=== PATIENT | female | born 1985 | race Hispanic/Latino ===

== ENCOUNTER 2024-11-28 17:56 | Inpatient (IN) | payer OTHER ==
[~2024-11-28] VITALS: Ht 152.4 cm; Wt 120.2 kg
[2024-11-28 18:00] VITALS: PULSE 108; RESP 20; TEMP 97.3
[2024-11-28] MEDS ORDERED: FUROSEMIDE40 MG PO (18:18)
[2024-11-28] MEDS ORDERED: LANTUS 3ML100 UNITS/ (18:18)
[2024-11-28] MEDS ORDERED: JARDIANCE25 MG (18:18)
[2024-11-28] MEDS ORDERED: SPIRONOLACTONE25 MG PO (18:18)
[2024-11-28] MEDS: ONDANSETRON HCL INJ 2MG/ML 2ML 2 MG/ML VIAL IV STA (19:00)
[2024-11-28] MEDS: Morphine 2mg Syringe 2 MG/ML SYR IV ONE (19:00)
[2024-11-28] MEDS: SODIUM CHLORIDE 0.9% 1000ML 1,000 ML IV SCH ×2 (19:00→21:30)
[2024-11-28] MEDS: FAMOTIDINE 20 MG/2 ML VIAL IV STA (19:01)
[2024-11-28 22:58] VITALS: BP 132/80; PULSE 64; RESP 18; TEMP 98.4; O2SAT 100
[2024-11-29] VITALS (10 sets, daily range): BP systolic 113–132; BP diastolic 63–80; PULSE 64–101; RESP 17–18; TEMP 97.7–99.4; O2SAT 92–100
[2024-11-29] MEDS: Morphine 2mg Syringe 2 MG/ML SYR IV PRN (03:13)
[2024-11-29] MEDS: ONDANSETRON HCL INJ 2MG/ML 2ML 2 MG/ML VIAL IV PRN (03:13)
[2024-11-29] MEDS ORDERED: LANTUS 3ML100 UNITS/ SQ (03:57)
[2024-11-29] MEDS ORDERED: SPIRONOLACTONE25 MG PO (03:57)
[2024-11-29 06:23] LABS: TROPONIN I 0.043 ng/mL (0-0.300)
[2024-11-29 08:12] LABS: BASOPHILS % 0.2 % (0.0-1.0); EOSINOPHILS % 0.2 % (0.0-6.0); HEMATOCRIT 41.8 % (34.2-44.1); HEMOGLOBIN 13.4 g/dL (12.0-16.0); LYMPHOCYTES # (AUTO) 0.5 (1.0-3.2); LYMPHOCYTES % 5.6 % (18.0-39.1); MEAN CORPUSCULAR HEMOGLOBIN 27.4 pg (28-32); MEAN CORPUSCULAR HGB CONC 32.1 g/dL (31-35); MEAN CORPUSCULAR VOLUME 85.5 fL (81-99); MONOCYTES # (AUTO) 0.6 (0.2-0.8); MONOCYTES % 7.1 % (4.4-11.3); NEUTROPHILS # (AUTO) 7.3 (2.1-6.9); NEUTROPHILS % 86.4 % (38.7-80.0); PLATELET COUNT 98 x10e3/uL (140-360); RED BLOOD COUNT 4.89 x10e6/uL (3.6-5.1); RED CELL DISTRIBUTION WIDTH 14.3 % (11.7-14.4); WHITE BLOOD COUNT 8.44 x10e3/uL (4.8-10.8)
[2024-11-29 08:42] LABS: ALBUMIN 3.4 g/dL (3.5-5.0); ALBUMIN/GLOBULIN RATIO 0.9 (0.8-2.0); ANION GAP 15.3 mmol/L (8-16); CALCIUM 8.5 mg/dL (8.4-10.2); CREATININE, SERUM 0.59 mg/dL (0.57-1.11); TOTAL PROTEIN 7.3 g/dL (6.5-8.1)
[2024-11-29 08:43] LABS: POTASSIUM 3.3 mmol/L (3.5-5.1)
[2024-11-29] MEDS ORDERED: HYDRALAZINE HCL 20 MG/ML VIAL IV PRN (08:45)
[2024-11-29] MEDS ORDERED: DOCUSATE SODIUM 100 MG CAP PO PRN (08:45)
[2024-11-29] MEDS ORDERED: ALBUTEROL/IPRATROPIUM 3 ML NEB NEB PRN (08:45)
[2024-11-29] MEDS ORDERED: MELATONIN 5 MG TABLET PO PRN (08:45)
[2024-11-29] MEDS ORDERED: SIMETHICONE 80 MG CHEW PO PRN (08:45)
[2024-11-29] MEDS ORDERED: DEXTROSE 50% SYRINGE 50 ML IV PRN (08:45)
[2024-11-29] MEDS ORDERED: LIDOCAINE 4% PATCH TP PRN (08:45)
[2024-11-29] MEDS ORDERED: DIPHENHYDRAMINE HCL 25 MG CAP PO PRN (08:45)
[2024-11-29] MEDS ORDERED: BENZONATATE 100 MG CAP PO PRN (08:45)
[2024-11-29] MEDS: FAMOTIDINE 20 MG/2 ML VIAL IV SCH (09:00)
[2024-11-29] MEDS: METOCLOPRAMIDE HCL 10 MG/2ML VIAL IV SCH (09:00)
[2024-11-29 15:31] LABS: CREATINE KINASE 55 IU/L (29-168)
[2024-11-29 15:38] LABS: TROPONIN I < 0.001 ng/mL (0-0.300)
[2024-11-29] MEDS: CIPROFLOXACIN 400 MG/D5W 200ML 200 ML IV SCH (15:58)
[2024-11-29] MEDS: ENOXAPARIN SOD INJ 40 MG/0.4 ML SYR SC SCH (16:01)
[2024-11-29] MEDS: IBUPROFEN 600 MG TAB PO PRN (16:26)
[2024-11-30] VITALS (10 sets, daily range): BP systolic 105–129; BP diastolic 65–83; PULSE 76–90; RESP 18–20; TEMP 97.2–98.6; O2SAT 95–100
[2024-11-30] MEDS: METOCLOPRAMIDE HCL 10 MG/2ML VIAL IV SCH (02:13)
[2024-11-30] MEDS: FUROSEMIDE INJ 10 MG/ML 4 ML VIAL IV ONE ×2 (02:51)
[2024-11-30] MEDS: FUROSEMIDE 40 MG TAB PO ONE (02:51)
[2024-11-30 05:49] LABS: BASOPHILS % 0.7 % (0.0-1.0); EOSINOPHILS # (AUTO) 0.2 (0.0-0.4); EOSINOPHILS % 4.6 % (0.0-6.0); HEMATOCRIT 39.9 % (34.2-44.1); HEMOGLOBIN 13.1 g/dL (12.0-16.0); LYMPHOCYTES # (AUTO) 0.6 (1.0-3.2); LYMPHOCYTES % 14.6 % (18.0-39.1); MEAN CORPUSCULAR HEMOGLOBIN 27.3 pg (28-32); MEAN CORPUSCULAR HGB CONC 32.8 g/dL (31-35); MEAN CORPUSCULAR VOLUME 83.3 fL (81-99); MONOCYTES # (AUTO) 0.5 (0.2-0.8); NEUTROPHILS # (AUTO) 2.9 (2.1-6.9); NEUTROPHILS % 67.6 % (38.7-80.0); PLATELET COUNT 81 x10e3/uL (140-360); RED BLOOD COUNT 4.79 x10e6/uL (3.6-5.1); RED CELL DISTRIBUTION WIDTH 14.1 % (11.7-14.4); WHITE BLOOD COUNT 4.32 x10e3/uL (4.8-10.8)
[2024-11-30 06:03] LABS: INR 1.1; PROTHROMBIN TIME 14.9 seconds (11.9-14.5)
[2024-11-30 06:04] LABS: PARTIAL THROMBOPLASTIN TIME 30.7 seconds (23.8-35.5)
[2024-11-30 06:23] LABS: ANION GAP 12.8 mmol/L (8-16); CALCIUM 8.2 mg/dL (8.4-10.2); CREATININE, SERUM 0.56 mg/dL (0.57-1.11); MAGNESIUM 1.5 MG/DL (1.3-2.1)
[2024-11-30 06:25] LABS: POTASSIUM 2.8 mmol/L (3.5-5.1)
[2024-11-30 06:55] LABS: TROPONIN I 0.007 ng/mL (0-0.300)
[2024-11-30 07:53] LABS: CHOL/HDL RATIO 3.4 (3.0-3.6)
[2024-11-30] MEDS ORDERED: FUROSEMIDE 40 MG TAB PO SCH (09:00)
[2024-11-30] MEDS: POTASSIUM CHLORIDE 20 MEQ TAB CR PO PRN (09:31)
[2024-11-30] MEDS: SPIRONOLACTONE 25 MG TAB PO SCH (09:32)
[2024-11-30] MEDS ORDERED: SPIRONOLACTONE 25 MG TAB PO ONE (13:00)
[2024-11-30] MEDS: POTASSIUM CHLORIDE 20 MEQ TAB CR PO ONE (15:10)
[2024-12-01] VITALS: BP 123/70; PULSE 83; RESP 20; TEMP 97.5; O2SAT 100
[2024-12-01 06:13] LABS: ALBUMIN 2.9 g/dL (3.5-5.0); ALBUMIN/GLOBULIN RATIO 0.9 (0.8-2.0); ANION GAP 10.3 mmol/L (8-16); BILIRUBIN,TOTAL 0.5 mg/dL (0.2-1.2); CALCIUM 8.1 mg/dL (8.4-10.2); CREATININE, SERUM 0.49 mg/dL (0.57-1.11); POTASSIUM 3.3 mmol/L (3.5-5.1); TOTAL PROTEIN 6.2 g/dL (6.5-8.1)
[2024-12-01 06:52] LABS: HEPATITIS A ANTIBODY IGM (P) Negative; HEPATITIS B CORE IGM (P) Negative; HEPATITIS B SURFACE AG (P) Negative; HEPATITIS C ANTIBODY Non Reactive
[2024-12-01 07:46] VITALS: BP 129/81; PULSE 84; RESP 17; TEMP 97.6; O2SAT 100
[2024-12-01 07:59] VITALS: PULSE 95; RESP 18; O2SAT 97
[2024-12-01 09:02] VITALS: BP 129/81; PULSE 84; RESP 17; TEMP 97.6; O2SAT 100
[2024-12-01 11:30] VITALS: BP 108/67; PULSE 78; RESP 18; TEMP 97.6; O2SAT 98
[2024-12-01 15:18] VITALS: BP 127/86; PULSE 77; RESP 17; TEMP 97.8; O2SAT 98
[2024-12-01] MEDS ORDERED: METRONIDAZOLE500 MG PO (15:26)
[2024-12-01] MEDS ORDERED: CIPRO500 MG PO (15:26)
[2024-12-01] MEDS ORDERED: PANTOPRAZOLE SO40 MG PO (15:26)
== END 2024-12-01 16:35 | disposition home or self-care (01) | DRG 392 ==
LOC: FSED 17:59 → ERHOLD 21:17 → MED/SURG2 22:58
PROVIDERS: ADMIT Internal Medicine; ATTEND Internal Medicine
PROC: 02HV33Z Insertion of Infusion Device into Superior Vena Cava, Percutaneous Approach (ICD-10-PCS; principal; 2024-11-29)
DX: A08.4 Viral intestinal infection, unspecified (principal); E66.01 Morbid (severe) obesity due to excess calories; Z68.43 Body mass index [BMI] 50.0-59.9, adult; L98.498 Non-pressure chronic ulcer of skin of other sites with other specified severity; K74.69 Other cirrhosis of liver; R18.8 Other ascites; K76.6 Portal hypertension; K75.81 Nonalcoholic steatohepatitis (NASH); D69.59 Other secondary thrombocytopenia; E11.9 Type 2 diabetes mellitus without complications; E86.0 Dehydration; K42.9 Umbilical hernia without obstruction or gangrene; R93.89 Abnormal findings on diagnostic imaging of other specified body structures; R16.1 Splenomegaly, not elsewhere classified; Z79.4 Long term (current) use of insulin; Z79.84 Long term (current) use of oral hypoglycemic drugs; Z90.49 Acquired absence of other specified parts of digestive tract; Z88.1 Allergy status to other antibiotic agents; Z88.5 Allergy status to narcotic agent; Z88.6 Allergy status to analgesic agent; Z83.3 Family history of diabetes mellitus; Z82.49 Family history of ischemic heart disease and other diseases of the circulatory system
CPT/HCPCS: 36415; 36568; 74176; 74470; 80048; 80053; 80061; 81003; 81025; 82550; 82948; 83036; 83735; 84484; 85025; 85610; 85730; 93005; 94799; 99252; 99284; J1650; J1938; J2270; J2405; J2470; J2765; J7030